=== PATIENT | male | born 1965 | race American Indian/Alaskan Native ===

== ENCOUNTER 2017-06-14 08:25 | Emergency (ER) | payer OTHER, BC ==
--- NOTE | 2017-06-14 09:02 | XRay Report ---
ROUTINE CHEST, TWO VIEWS: HISTORY: chest pain. The trachea, heart, mediastinal contour, lung harp and bony thorax are unremarkable. IMPRESSION: Unremarkable chest x-ray.
[2017-06-14 09:06] LABS: Hemoglobin 16.5 gm/dl (11.8-15.2); Mean Corpuscular HGB Conc 34 % (32-34); Mean Corpuscular Hemoglobin 28 pg (28-32); Mean Corpuscular Volume 84 fl (84-94); Platelet Count 241 K/mm3 (140-440); Red Blood Count 5.82 M/mm3 (3.65-5.03); Red Cell Distribution Width 12.7 % (13.2-15.2)
[2017-06-14 09:12] LABS: BUN/Creatinine Ratio 13; Blood Urea Nitrogen 13 mg/dL (9-20); Calcium 9.8 mg/dL (8.4-10.2); Hemolysis Index 21
[2017-06-14 11:12] LABS: Basophils % (Manual) 0 % (0.0-1.8); Total Cells Counted 100
[2017-06-14 11:13] LABS: Platelet Estimate Cons; RBC Morphology Normal
[2017-06-14] MEDS ORDERED: NORCO 10/325 PO ONE (12:27)
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
[2017-06-14 13:22] VITALS: BP 126/88
== END 2017-06-14 13:24 | disposition home or self-care (01) ==
LOC: ED 08:25
DX: R07.89 Other chest pain (principal); E11.9 Type 2 diabetes mellitus without complications
CPT/HCPCS: 36415; 71046; 80048; 82962; 84484; 85007; 85025; 93005; 93010

== ENCOUNTER 2017-10-16 12:49 | Outpatient (CLI) | payer BC ==
--- NOTE | 2017-10-16 15:57 | Ultrasound Report ---
ULTRASOUND ABDOMEN COMPLETE: TECHNIQUE: Transabdominal ultrasound with color Doppler interrogation. HISTORY: Abdominal pain, tenderness. COMPARISON: none. FINDINGS: LIVER: Normal. BILIARY SYSTEM: Normal. PANCREAS: Normal. SPLEEN: Normal. KIDNEYS: Normal. AORTA/IVC: Normal. ASCITES: None. Comment: Targeted ultrasound images were obtained in the region of the umbilicus which demonstrates no discrete abnormality. There is no obvious hernia, mass or fluid collection in this area. IMPRESSION: Unremarkable exam.
== END 2017-10-16 12:50 | disposition home or self-care (01) ==
LOC: US 12:49
DX: K42.9 Umbilical hernia without obstruction or gangrene (principal); R10.819 Abdominal tenderness, unspecified site
CPT/HCPCS: 76700